=== PATIENT | male | born 1965 | race Caucasian/White ===

== ENCOUNTER 2018-12-27 15:52 | Emergency (ER) | payer MEDICARE, MEDICAID ==
[~2018-12-27] VITALS: Ht 177.8 cm; Wt 73.0 kg
[2018-12-27] MEDS ORDERED: CLONAZEPAM 1MG TABLET PO ONE (16:45)
[2018-12-27 21:00] VITALS: BP 101/56
== END 2018-12-27 21:43 | disposition home or self-care (01) ==
LOC: ER 16:16
DX: G40.909 Epilepsy, unspecified, not intractable, without status epilepticus (principal); F20.9 Schizophrenia, unspecified
CPT/HCPCS: 99283